=== PATIENT | male | born 1995 | race Caucasian/White ===

== ENCOUNTER 2022-08-13 15:20 | Emergency (ER) | payer MEDICAID ==
[~2022-08-13] VITALS: Ht 185.4 cm; Wt 86.4 kg
[2022-08-13 15:26] VITALS: BP 137/92
[2022-08-13 15:35] LABS: HEMOGLOBIN 16.3 g/dl (14.0-17.9); LYMPHOCYTES # (AUTO) 0.8 X10'3 (1.1-4.8); MEAN CORPUSCULAR HEMOGLOBIN 32.3 PG (27.0-31.0); NEUTROPHILS # (AUTO) 3.9 X10'3 (1.8-7.7); RED BLOOD COUNT 5.04 X10'6 (4.70-6.10)
[2022-08-13 15:37] LABS: BASOPHILS % (AUTO) 0.6 % (0-1); EOSINOPHILS % (AUTO) 0.5 % (0-6); HEMATOCRIT 47.9 % (42.0-52.0); MEAN CORPUSCULAR VOLUME 94.9 FL (78-98); MEAN PLATELET VOLUME 7.8 FL (7.4-10.4); MONOCYTES # (AUTO) 0.7 X10'3 (0-0.9); MONOCYTES % (AUTO) 12.1 % (2-12); NEUTROPHILS % (AUTO) 71.8 % (42-75); PLATELET COUNT 262 X10'3 (140-440); RED CELL DISTRIBUTION WIDTH 14.6 % (11.5-14.5); WHITE BLOOD COUNT 5.4 X10'3 (4.5-11.0)
[2022-08-13 15:49] LABS: ALANINE AMINOTRANSFERASE 123 U/L (12-78); ALBUMIN 4.2 G/DL (3.4-5.0); ALBUMIN/GLOBULIN RATIO 1.2 (1.1-1.5); ALKALINE PHOSPHATASE 86 IU/L (46-116); ANION GAP 12 (8-16); ASPARTATE AMINO TRANSFERASE 75 U/L (10-37); BILIRUBIN,TOTAL 0.6 MG/DL (0.1-1.0); BLOOD UREA NITROGEN 7 MG/DL (7-18); CALCIUM 8.9 MG/DL (8.5-10.1); CHLORIDE 102 MMOL/L (99-107); CREATININE 0.87 MG/DL (0.60-1.10); GLUCOSE 132 MG/DL (70-104); POTASSIUM 3.1 MMOL/L (3.5-5.1); SODIUM 139 MMOL/L (135-145); TOTAL CARBON DIOXIDE 25.5 MMOL/L (24-32); TOTAL PROTEIN 7.8 G/DL (6.4-8.2); eGFR > 90 ML/MIN
[2022-08-13 15:56] LABS: MAGNESIUM 2.2 MG/DL (1.5-2.4)
[2022-08-13 16:04] LABS: ETHANOL 0.421 GM/DL (0.0-0.010)
[2022-08-13] MEDS ORDERED: potassium CL 10mEq/100ml bag 100 ML IV ONE (18:15)
[2022-08-13] MEDS ORDERED: potassium Cl 20 mEq SR tablet PO ONE (18:20)
[2022-08-14] MEDS ORDERED: ATI1T PO (16:19)
[2022-08-14] MEDS ORDERED: ONDA4TAB12 PO (16:19)
[2022-08-14] MEDS ORDERED: GABA-530 PO (16:19)
== END 2022-08-13 18:40 | disposition home or self-care (01) ==
LOC: ER 15:20
DX: F10.129 Alcohol abuse with intoxication, unspecified (principal); Y90.9 Presence of alcohol in blood, level not specified; Z79.899 Other long term (current) drug therapy
CPT/HCPCS: 36415; 71045; 80053; 80320; 83735; 83880; 84484; 85025; 93005; 99285; J7030

== ENCOUNTER 2022-08-14 12:51 | Emergency (ER) | payer MEDICAID ==
[~2022-08-14] VITALS: Ht 185.4 cm; Wt 86.4 kg
[2022-08-14 13:28] LABS: HEMOGLOBIN 16.6 g/dl (14.0-17.9); LYMPHOCYTES # (AUTO) 1.2 X10'3 (1.1-4.8); RED CELL DISTRIBUTION WIDTH 14.7 % (11.5-14.5)
[2022-08-14 13:30] LABS: BASOPHILS # (AUTO) 0.1 X10'3 (0-0.2); BASOPHILS % (AUTO) 0.7 % (0-1); EOSINOPHILS % (AUTO) 0.3 % (0-6); HEMATOCRIT 49.8 % (42.0-52.0); LYMPHOCYTES % (AUTO) 15.3 % (21-51); MEAN CORPUSCULAR HEMOGLOBIN 32.3 PG (27.0-31.0); MEAN CORPUSCULAR HGB CONC 33.4 g/dL (33.0-36.5); MEAN CORPUSCULAR VOLUME 96.8 FL (78-98); MEAN PLATELET VOLUME 9.3 FL (7.4-10.4); MONOCYTES # (AUTO) 0.7 X10'3 (0-0.9); MONOCYTES % (AUTO) 8.7 % (2-12); PLATELET COUNT 274 X10'3 (140-440); RED BLOOD COUNT 5.14 X10'6 (4.70-6.10)
[2022-08-14 13:31] LABS: ALANINE AMINOTRANSFERASE 120 U/L (12-78); ALBUMIN 4.4 G/DL (3.4-5.0); ALBUMIN/GLOBULIN RATIO 1.3 (1.1-1.5); ALKALINE PHOSPHATASE 86 IU/L (46-116); ANION GAP 19 (8-16); ASPARTATE AMINO TRANSFERASE 69 U/L (10-37); BILIRUBIN,TOTAL 1.6 MG/DL (0.1-1.0); BLOOD UREA NITROGEN 9 MG/DL (7-18); BUN/CREATININE RATIO 9.1 (10.0-20.0); CALCIUM 10.2 MG/DL (8.5-10.1); CHLORIDE 100 MMOL/L (99-107); CREATININE 0.99 MG/DL (0.60-1.10); GLUCOSE 111 MG/DL (70-104); LIPASE < 50 U/L (73-393); POTASSIUM 4.1 MMOL/L (3.5-5.1); SODIUM 143 MMOL/L (135-145); TOTAL CARBON DIOXIDE 23.6 MMOL/L (24-32); TOTAL PROTEIN 7.9 G/DL (6.4-8.2); eGFR > 90 ML/MIN
[2022-08-14] MEDS ORDERED: LORazepam 2 mg/ml vial IV ONE (13:40)
[2022-08-14] MEDS ORDERED: normal saline 1000ml 1,000 ML IV ONE ×2 (13:40→15:00)
[2022-08-14] MEDS ORDERED: ondansetron/PF 4mg/2ml inj IV ONE (13:40)
--- NOTE | 2022-08-14 13:47 | NUR ---
Met with patient in regards to alcohol use and to see if patient was interested in resources for treatment options. Patient is interested. I gave patient a list of facilities, [facility] card and my card to call me with any questions.
[2022-08-14 14:00] LABS: ETHANOL < 0.010 GM/DL (0.0-0.010)
[2022-08-14] MEDS ORDERED: folic acid 1mg/0.2ml inj IV ONE (14:40)
[2022-08-14] MEDS ORDERED: thiamine 100mg/ml 2ml inj. IV ONE (15:00)
[2022-08-14] MEDS ORDERED: chlordiazePOXIDE 25mg capsule PO ONE (15:00)
[2022-08-14 16:18] LABS: CLARITY,URINE CLEAR (Clear); COLOR,URINE YELLOW (Yellow); GLUCOSE, URINE NEGATIVE (Neg); KETONES,URINE >=80 mg/dl (Neg); LEUKOCYTE ESTERASE ,URINE NEGATIVE (Neg); NITRITES, URINE NEGATIVE (Neg); OCCULT BLOOD,URINE NEGATIVE (Neg); PH,URINE 6.5 (4.8-8.0); PROTEIN,URINE 30 mg/dl (Neg)
[2022-08-14] MEDS ORDERED: ATI1T PO (16:19)
[2022-08-14] MEDS ORDERED: ONDA4TAB12 PO (16:19)
[2022-08-14] MEDS ORDERED: GABA-530 PO (16:19)
[2022-08-14 16:26] LABS: UA COLLECTION TYPE VOIDED
[2022-08-14 16:28] LABS: SQUAMOUS EPITHELIAL CELL,UR FEW /LPF (FEW); TRANSITIONAL EPI CELLS,URINE FEW /HPF
[2022-08-14 16:30] LABS: BACTERIA,URINE FEW /HPF (Neg); MUCUS STRANDS MODERATE /LPF (Neg); RBC,URINE 0-2 /HPF (0-2); WBC,URINE 0-4 /HPF (0-4)
[2022-08-14 16:37] LABS: URINE AMPHETAMINE SCREEN NEGATIVE (Neg); URINE BARBITUATE SCREEN NEGATIVE (Neg); URINE BENZODIAZEPINES SCREEN NEGATIVE (Neg); URINE CANNABINOID SCREEN POSITIVE (Neg); URINE COCAINE SCREEN NEGATIVE (Neg); URINE METHADONE SCREEN NEGATIVE (Neg); URINE OPIATE SCREEN NEGATIVE (Neg); URINE PHENCYCLIDINE SCREEN NEGATIVE (Neg)
[2022-08-14 16:53] VITALS: BP 141/82
== END 2022-08-14 16:54 | disposition home or self-care (01) ==
LOC: ER 12:52
DX: F10.239 Alcohol dependence with withdrawal, unspecified (principal); Y90.9 Presence of alcohol in blood, level not specified
CPT/HCPCS: 36415; 80053; 80305; 80320; 81001; 83690; 85025; 96361; 96374; 96375; 99284; J2060; J2405; J3411; J3490; J7030

== ENCOUNTER 2023-04-21 18:44 | Emergency (ER) | payer MEDICAID ==
[~2023-04-21] VITALS: Ht 188 cm; Wt 86.4 kg
[~2023-04-21 18:44] MED LIST: ATI1T PO; GABA-530 PO; ONDA4TAB12 PO
[2023-04-21 19:15] VITALS: TEMP 98.4
[2023-04-21] MEDS ORDERED: LORazepam 2 mg/ml vial IV PRN (19:30)
[2023-04-21] MEDS ORDERED: normal saline 1000ML IV soln IVB ONE (21:20)
[2023-04-21 21:24] LABS: ALANINE AMINOTRANSFERASE 184 U/L (12-78); ALBUMIN 4.5 G/DL (3.4-5.0); ALBUMIN/GLOBULIN RATIO 1.2 (1.1-1.5); ALKALINE PHOSPHATASE 72 IU/L (46-116); ANION GAP 14 (8-16); ASPARTATE AMINO TRANSFERASE 92 U/L (10-37); BILIRUBIN,TOTAL 0.5 MG/DL (0.1-1.0); BLOOD UREA NITROGEN 10 MG/DL (7-18); CALCIUM 8.8 MG/DL (8.5-10.1); CHLORIDE 104 MMOL/L (99-107); CREATININE 0.83 MG/DL (0.60-1.10); GLUCOSE 101 MG/DL (70-104); POTASSIUM 3.9 MMOL/L (3.5-5.1); SODIUM 144 MMOL/L (135-145); TOTAL CARBON DIOXIDE 25.6 MMOL/L (24-32); TOTAL PROTEIN 8.3 G/DL (6.4-8.2); eCRCL 155 ML/MIN; eGFR > 90 ML/MIN
[2023-04-21 21:25] LABS: LIPASE 18 U/L (16-77); SALICYLATE 0.9 MG/DL (4.0-20.0)
[2023-04-21 21:26] LABS: ACETAMINOPHEN < 2.0 UG/ML (10-30); BASOPHILS % (AUTO) 0.8 % (0-1); EOSINOPHILS % (AUTO) 0.5 % (0-6); HEMATOCRIT 46.6 % (42.0-52.0); HEMOGLOBIN 15.7 g/dl (14.0-17.9); LYMPHOCYTES % (AUTO) 22.7 % (21-51); MEAN CORPUSCULAR HEMOGLOBIN 32.7 PG (27.0-31.0); MEAN CORPUSCULAR HGB CONC 33.8 g/dL (33.0-36.5); MEAN PLATELET VOLUME 7.8 FL (7.4-10.4); MONOCYTES # (AUTO) 0.4 X10'3 (0-0.9); MONOCYTES % (AUTO) 9.3 % (2-12); NEUTROPHILS % (AUTO) 66.7 % (42-75); PLATELET COUNT 259 X10'3 (140-440); RED BLOOD COUNT 4.81 X10'6 (4.70-6.10); RED CELL DISTRIBUTION WIDTH 14.3 % (11.5-14.5); WHITE BLOOD COUNT 4.6 X10'3 (4.5-11.0)
[2023-04-21 21:30] LABS: ETHANOL 411 MG/DL (<10)
[2023-04-21 21:45] LABS: BILIRUBIN,URINE NEGATIVE (Neg); CLARITY,URINE CLEAR (Clear); COLOR,URINE YELLOW (Yellow); GLUCOSE, URINE NEGATIVE (Neg); KETONES,URINE 40 mg/dl (Neg); LEUKOCYTE ESTERASE ,URINE NEGATIVE (Neg); NITRITES, URINE NEGATIVE (Neg); OCCULT BLOOD,URINE NEGATIVE (Neg); PROTEIN,URINE 100 mg/dl (Neg); UROBILINOGEN,URINE 0.2 E.U/dL (0.2-1.0)
[2023-04-21 21:50] LABS: UA COLLECTION TYPE CLN CATCH MIDSTREAM
[2023-04-21 21:52] LABS: RBC,URINE 0-2 /HPF (0-2)
[2023-04-21 21:53] LABS: MUCUS STRANDS MANY /LPF (Neg)
[2023-04-21 21:54] LABS: BACTERIA,URINE 2+ /HPF (Neg); SQUAMOUS EPITHELIAL CELL,UR FEW /LPF (FEW)
[2023-04-21 22:11] LABS: URINE AMPHETAMINE SCREEN NEGATIVE (Neg); URINE BARBITUATE SCREEN NEGATIVE (Neg); URINE BENZODIAZEPINES SCREEN NEGATIVE (Neg); URINE CANNABINOID SCREEN POSITIVE (Neg); URINE COCAINE SCREEN NEGATIVE (Neg); URINE METHADONE SCREEN NEGATIVE (Neg); URINE OPIATE SCREEN NEGATIVE (Neg); URINE PHENCYCLIDINE SCREEN NEGATIVE (Neg)
[2023-04-21 22:34] VITALS: BP 160/100; PULSE 100; RESP 16; O2SAT 96
== END 2023-04-21 22:39 | disposition left against medical advice (07) ==
LOC: ER 18:45
DX: F10.239 Alcohol dependence with withdrawal, unspecified (principal); Y90.9 Presence of alcohol in blood, level not specified
CPT/HCPCS: 36415; 80053; 80305; 80320; 80329; 81001; 83690; 85025; 96361; 96374; 99284; J2060; J7030

== ENCOUNTER 2023-10-13 12:32 | Emergency (ER) | payer MEDICAID ==
[~2023-10-13] VITALS: Ht 188 cm; Wt 84.1 kg
[2023-10-13 13:22] VITALS: TEMP 98.3
[2023-10-13 13:58] LABS: BASOPHILS % (AUTO) 0.6 % (0-1); HEMOGLOBIN 14.8 g/dl (14.0-17.9); LYMPHOCYTES # (AUTO) 0.3 X10'3 (1.1-4.8); MONOCYTES # (AUTO) 0.4 X10'3 (0-0.9); WHITE BLOOD COUNT 3.2 X10'3 (4.5-11.0)
[2023-10-13 13:59] LABS: EOSINOPHILS % (AUTO) 0.1 % (0-6); HEMATOCRIT 43.6 % (42.0-52.0); LYMPHOCYTES % (AUTO) 8.5 % (21-51); MEAN CORPUSCULAR HEMOGLOBIN 32.7 PG (27.0-31.0); MEAN CORPUSCULAR HGB CONC 33.9 g/dL (33.0-36.5); MEAN CORPUSCULAR VOLUME 96.4 FL (78-98); MEAN PLATELET VOLUME 8.7 FL (7.4-10.4); MONOCYTES % (AUTO) 13.7 % (2-12); NEUTROPHILS # (AUTO) 2.5 X10'3 (1.8-7.7); NEUTROPHILS % (AUTO) 77.1 % (42-75); PLATELET COUNT 156 X10'3 (140-440); RED BLOOD COUNT 4.52 X10'6 (4.70-6.10); RED CELL DISTRIBUTION WIDTH 13.5 % (11.5-14.5)
[2023-10-13 14:11] LABS: ALBUMIN 4.1 G/DL (3.4-5.0); ANION GAP 12 (8-16); BLOOD UREA NITROGEN 11 MG/DL (7-18); BUN/CREATININE RATIO 12.2 (10.0-20.0); CHLORIDE 92 MMOL/L (99-107); ETHANOL < 10 MG/DL (<10); GLUCOSE 108 MG/DL (70-104); POTASSIUM 3.8 MMOL/L (3.5-5.1); SODIUM 128 MMOL/L (135-145); TOTAL CARBON DIOXIDE 24.1 MMOL/L (24-32); eCRCL 143 ML/MIN; eGFR > 90 ML/MIN
[2023-10-13] MEDS: chlordiazePOXIDE 25mg capsule PO ONE (14:27)
[2023-10-13] MEDS: ondansetron/PF 4mg/2ml inj IV ONE (14:29)
[2023-10-13] MEDS: normal saline 1000ml 1,000 ML IV ONE (14:30)
[2023-10-13] MEDS: pantoprazole 40 MG vial IV ONE (14:30)
[2023-10-13 15:33] LABS: BILIRUBIN,URINE SMALL (Neg); CLARITY,URINE CLEAR (Clear); COLOR,URINE YELLOW (Yellow); GLUCOSE, URINE NEGATIVE (Neg); KETONES,URINE >=80 mg/dl (Neg); LEUKOCYTE ESTERASE ,URINE NEGATIVE (Neg); NITRITES, URINE NEGATIVE (Neg); OCCULT BLOOD,URINE SMALL (Neg); PROTEIN,URINE 30 mg/dl (Neg); UROBILINOGEN,URINE 0.2 E.U/dL (0.2-1.0)
[2023-10-13 15:39] LABS: UA COLLECTION TYPE CLN CATCH MIDSTREAM
[2023-10-13 15:40] LABS: WBC,URINE 0-4 /HPF (0-4)
[2023-10-13 15:41] LABS: BACTERIA,URINE NONE SEEN /HPF (Neg); MUCUS STRANDS NONE SEEN /LPF (Neg); RBC,URINE 0-2 /HPF (0-2); SQUAMOUS EPITHELIAL CELL,UR NONE SEEN /LPF (FEW)
[2023-10-13 15:49] LABS: URINE AMPHETAMINE SCREEN NEGATIVE (Neg); URINE BARBITUATE SCREEN NEGATIVE (Neg); URINE BENZODIAZEPINES SCREEN NEGATIVE (Neg); URINE CANNABINOID SCREEN NEGATIVE (Neg); URINE COCAINE SCREEN NEGATIVE (Neg); URINE METHADONE SCREEN NEGATIVE (Neg); URINE OPIATE SCREEN NEGATIVE (Neg); URINE PHENCYCLIDINE SCREEN NEGATIVE (Neg)
[2023-10-13] MEDS ORDERED: ONDA-243 PO (15:50)
[2023-10-13] MEDS ORDERED: CHLO25CA10 PO ×2 (15:50→15:58)
[2023-10-13] MEDS ORDERED: PANT-47 PO (15:50)
[2023-10-13 16:28] VITALS: BP 138/93; PULSE 75; RESP 12; O2SAT 98
== END 2023-10-13 16:30 | disposition home or self-care (01) ==
LOC: ER 12:33
DX: F10.239 Alcohol dependence with withdrawal, unspecified (principal); K29.70 Gastritis, unspecified, without bleeding; R11.2 Nausea with vomiting, unspecified; Y90.6 Blood alcohol level of 120-199 mg/100 ml
CPT/HCPCS: 36415; 80048; 80305; 80320; 81001; 85025; 93005; 96361; 96374; 96375; 99284; J2405; J2470; J7030

== ENCOUNTER 2024-01-19 11:53 | Emergency (ER) | payer OTHER ==
[~2024-01-19] VITALS: Ht 188 cm; Wt 94.8 kg
[~2024-01-19 11:53] MED LIST changes: -ATI1T PO; +CHLO25CA10 PO; -GABA-530 PO; +ONDA-243 PO; -ONDA4TAB12 PO; +PANT-47 PO
[2024-01-19 13:09] LABS: EOSINOPHILS # (AUTO) 0.1 X10'3 (0-0.9); HEMATOCRIT 45.3 % (42.0-52.0); MEAN PLATELET VOLUME 8.5 FL (7.4-10.4); NEUTROPHILS # (AUTO) 2.1 X10'3 (1.8-7.7); WHITE BLOOD COUNT 3.8 X10'3 (4.5-11.0)
[2024-01-19 13:11] LABS: BASOPHILS % (AUTO) 0.9 % (0-1); EOSINOPHILS % (AUTO) 2.6 % (0-6); HEMOGLOBIN 15.5 g/dl (14.0-17.9); LYMPHOCYTES # (AUTO) 1.1 X10'3 (1.1-4.8); LYMPHOCYTES % (AUTO) 29.7 % (21-51); MEAN CORPUSCULAR HGB CONC 34.2 g/dL (33.0-36.5); MEAN CORPUSCULAR VOLUME 96.4 FL (78-98); MONOCYTES # (AUTO) 0.5 X10'3 (0-0.9); NEUTROPHILS % (AUTO) 54.8 % (42-75); PLATELET COUNT 136 X10'3 (140-440); RED CELL DISTRIBUTION WIDTH 14.9 % (11.5-14.5)
[2024-01-19 13:13] LABS: ALANINE AMINOTRANSFERASE 129 U/L (12-78); ALBUMIN 4.1 G/DL (3.4-5.0); ALBUMIN/GLOBULIN RATIO 1.1 (1.1-1.5); ALKALINE PHOSPHATASE 88 IU/L (46-116); ANION GAP 12 (8-16); ASPARTATE AMINO TRANSFERASE 93 U/L (10-37); BILIRUBIN,TOTAL 0.4 MG/DL (0.1-1.0); BLOOD UREA NITROGEN 5 MG/DL (7-18); BUN/CREATININE RATIO 6.8 (10.0-20.0); CALCIUM 9.1 MG/DL (8.5-10.1); CHLORIDE 104 MMOL/L (99-107); CREATININE 0.73 MG/DL (0.60-1.10); GLUCOSE 113 MG/DL (70-104); LIPASE 36 U/L (16-77); POTASSIUM 3.3 MMOL/L (3.5-5.1); SODIUM 143 MMOL/L (135-145); TOTAL CARBON DIOXIDE 27.1 MMOL/L (24-32); TOTAL PROTEIN 7.9 G/DL (6.4-8.2); eCRCL 177 ML/MIN; eGFR > 90 ML/MIN
[2024-01-19] MEDS: diazepam 5mg tablet PO ONE (13:54)
[2024-01-19 14:00] LABS: BILIRUBIN,URINE NEGATIVE (Neg); CLARITY,URINE CLEAR (Clear); COLOR,URINE YELLOW (Yellow); GLUCOSE, URINE NEGATIVE (Neg); KETONES,URINE NEGATIVE (Neg); LEUKOCYTE ESTERASE ,URINE NEGATIVE (Neg); NITRITES, URINE NEGATIVE (Neg); OCCULT BLOOD,URINE NEGATIVE (Neg); PROTEIN,URINE NEGATIVE (Neg); UROBILINOGEN,URINE 0.2 E.U/dL (0.2-1.0)
[2024-01-19 14:02] LABS: UA COLLECTION TYPE VOIDED
[2024-01-19 15:00] VITALS: BP 136/86; PULSE 85; RESP 16; TEMP 97.8; O2SAT 98
[2024-01-21] MEDS ORDERED: ONDA-243 PO (19:05)
[2024-01-21] MEDS ORDERED: CHLO25CA10 PO (19:05)
[2024-01-21] MEDS ORDERED: PANT-47 PO (19:05)
== END 2024-01-19 15:02 | disposition home or self-care (01) ==
LOC: ER 11:53
DX: F10.230 Alcohol dependence with withdrawal, uncomplicated (principal); Z79.899 Other long term (current) drug therapy
CPT/HCPCS: 80053; 81003; 83690; 85025; 99283